=== PATIENT | male | born 1970 | race Caucasian/White ===

== ENCOUNTER 2024-06-28 12:38 | Emergency (ER) | payer BC, SELFPAY ==
[2024-06-28 12:39] VITALS: BP 129/73; PULSE 89; RESP 18; TEMP 36.6; O2SAT 97
[2024-06-28] MEDS: TETANUS,DIPHTHERIA,AC PERTUSSIS ADULT 0.5 ML (ADACEL) IM (13:09)
--- NOTE | 2024-06-28 13:26 | ED_ITS ---
HPI - General Adult General Chief complaint: Wound/Laceration Stated complaint: rt. foot injury Time Seen by Provider: 06/28/24 12:55 History of Present Illness HPI narrative: Patient reports that just prior to arrival in the emergency room he stepped on a garden rake that was laying on the ground with the tines pointed up. He was wearing a soft sole shoe and the jessica went through the shoe and into his foot. he did not sustain any other injuries in the event. He is able to bear weight. He reports the bleeding stopped on its own. Related Data Allergies Allergy/AdvReac Type Severity Reaction Status Date / Time Penicillins Allergy Unknown Unknown Verified 06/28/24 13:04 Exam Narrative: There is a single puncture wound over the ball of the foot in distribution of the 5th digit. This proximally 5 mm in diameter. Is hemostatic. There is no surrounding erythema or induration. There is no purulent drainage. Distal sen kike, motor, circulation are intact. no other injuries noted on examination.No other pain on palpation. Course Vital Signs Vital signs: Vital Signs Temperature 36.6 C 06/28/24 12:39 Pulse Rate 89 06/28/24 12:39 Respiratory Rate 18 06/28/24 12:39 Blood Pressure 129/73 06/28/24 12:39 Pulse Oximetry 97 06/28/24 12:39 Oxygen Delivery Room Air 06/28/24 12:39 Temperature 36.6 C 06/28/24 12:39 Pulse Rate 89 06/28/24 12:39 Respiratory Rate 18 06/28/24 12:39 Blood Pressure 129/73 06/28/24 12:39 Pulse Oximetry 97 06/28/24 12:39 Oxygen Delivery Room Air 06/28/24 12:39 Medical Decision Making [facility] Narrative Medical decision making narrative: Patient was placed in Room #:? Seven Independent Historian: the patient External Source Review: none Differential diagnosis includes but not limited to:? traumatic puncture wound Medications were Reviewed: home medications Independently Interpreted by me: none Medications, treatment, ED course: single puncture wound was copiously irrigated. Patient reported a penicillin allergy but states adamantly that he has had amoxicillin recently without any issues Social situation impacting patients care: patient lives independently in the community Shared decision making:? he agrees to home with self-care and follow-up with his primary care physician Accepting physician: none DISCHARGE DIAGNOSIS: puncture wound DISPOSITION: home with self-care CONDITION AT DISCHARGE:? stable Vital Signs Vital Signs: Vital Signs Temperature 36.6 C 06/28/24 12:39 Pulse Rate 89 06/28/24 12:39 Respiratory Rate 18 06/28/24 12:39 Blood Pressure 129/73 06/28/24 12:39 Pulse Oximetry 97 06/28/24 12:39 Oxygen Delivery Room Air 06/28/24 12:39 Temperature 36.6 C 06/28/24 12:39 Pulse Rate 89 06/28/24 12:39 Respiratory Rate 18 06/28/24 12:39 Blood Pressure 129/73 06/28/24 12:39 Pulse Oximetry 97 06/28/24 12:39 Oxygen Delivery Room Air 06/28/24 12:39 Discharge Plan Discharge Clinical Impression: Puncture wound Patient Disposition: Home, Self-Care Condition: Stable Instructions: Antibiotic Form Additional Instructions: he will puncture wound of your foot. He received a tetanus shot today in the ER. The wound was cleaned thoroughly. Redo not so these wounds closed because we do not own a trap bacteria or infectious material in the wound. Here being given an antibiotic not because you have an infection now but because you are at risk of developing infection. Return to the emergency department or call 911 if? you develop high fever, shaking chills, or are unable to tolerate food or? fluids, have decreased urination, or are too sick to get out of bed. Return to the emergency department if he developed redness and swelling traveling up your foot or your foot starts draining any pus. follow-up with your primary care doctor especially if you have symptoms of ongoing pain. he reported that you have a penicillin allergy dating to the infancy But that you also have recently had amoxicillin. The antibiotic I am giving you today includes amoxicillin. If you have any adverse reaction to this please stop taking it and return to the ER immediately. I recommend you follow-up with your primary care doctor to see if he can officially be cleared of having a penicillin allergy as this could be beneficial in the future. Patient Language: Turkish Prescriptions: New amoxicillin-pot clavulanate 875-125 mg tablet 1 tablet PO Q12H 7 Days Qty: 14 0RF Rx Instructions: Pt reports a penicillin allergy but states he has had recent amoxicillin without any reaction. Follow-up/Referrals: Vianey,Med Owens MD [Primary Care Provider] - Time of Disposition: 13:40
== END 2024-06-28 13:45 | disposition home or self-care (01) ==
LOC: CHSED 13:37
PROVIDERS: Emergency Provider Family Medicine; PCP Family Medicine
DX: S91.331A Puncture wound without foreign body, right foot, initial encounter (principal); Z23 Encounter for immunization; W26.8XXA Contact with other sharp object(s), not elsewhere classified, initial encounter
CPT/HCPCS: 90471; 90715; 99283

== ENCOUNTER 2024-07-23 15:14 | Emergency (ER) | payer BC, SELFPAY ==
[2024-07-23 15:14] VITALS: BP 141/111; PULSE 80; RESP 18; TEMP 35.2; O2SAT 99
--- NOTE | 2024-07-23 15:46 | ED_ITS ---
HPI - Nausea/Vomiting/Diarrhea General Chief complaint: Nausea/Vomiting/Diarrhea Stated complaint: nausea Time Seen by Provider: 07/23/24 15:46 Source: patient Mode of arrival: ambulatory Limitations: no limitations History of Present Illness HPI Narrative: 53-year-old male on Adderall developed right lower dental pain last night for which he took acetaminophen and his arms Vicodin. Subsequently he developed -- multiple episodes of vomiting. Currently his vomitus is bilious. No abdominal pain. No diarrhea. No fever or chills. No chest pain or shortness of breath. MD elicited complaint: nausea and vomiting Onset (ago): day(s) ( One day) Description of vomiting: bilious Associated nausea: Yes Associated abdominal pain: No Exacerbating factors: none Relieving factors: none Associated symptoms: syncope Related Data Allergies Allergy/AdvReac Type Severity Reaction Status Date / Time Penicillins Allergy Unknown Unknown Verified 07/23/24 15:31 Review of Systems 2 Review of Systems: All systems reviewed & are unremarkable except as noted in HPI and below Exam 2 Narrative: blood pressure 141/111 with a heart rate of 80. Patient is afebrile. Oxygen saturation of 99% on room air. Patient looks anxious and diaphoretic. Const: General: no acute distress Nutritional Appearance: well nourished Orientation/consciousness: patient oriented x3 Limitations: no limitations HENMT: Head: normal to inspection Ears: external ears normal F kevon/Nose/Sinus: Normal external nose present Face and sinus: normal facial exam Mouth: Yes Normal oral and palatal mucosa present Teeth and gingiva: abnormal tooth and associated gingiva ( right lower jaw has dental caries.) T hroat: posterior oropharynx normal Eyes: Conjunctivae: conjunctivae normal Cornea: corneas normal Pupils: E qual, round and reactive pupils present EOM: EOMs intact bilaterally D irect Ophthalmoscopy: no photophobia Neck: Neck: normal visual inspection, no lymphadenopathy and no meningeal signs Chest: Chest palpation & inspection: normal inspection of the chest Resp: Effort & Inspection: normal respiratory effort Auscultation: clear to auscultation bilaterally Cardio: Rate: regular rate Rhythm: regular rhythm GI: GI Palp: Yes Soft to palpation Auscultation: normal bowel sounds O ther: No tenderness/ rigidity /rebound : General: Yes no CVA tenderness Back/Spine/Pelvis: Back: no CVA tenderness Skin: General skin exam: normal color Rashes: no rashes Wounds: no wounds Neuro: General: patient oriented x3, moves all extremities, no meningeal signs, no focal motor deficits and CN's II-XI intact bilaterally Cranial nerves: Yes Nystagmus not present Speech: normal speech Gait exam (Neuro): Normal gait present Extrem: General: normal to inspection and no clubbing, cyanosis or edema Psych: Mental Status: mental status grossly normal Affect: normal affect Attitude: cooperative Course Course Emergency Course: nausea and vomiting possibly secondary to gastritis dehydration transaminitis questionable Tylenol overdose Patient left AMA. The patient was explained the risks and consequences involved in leaving the facility this [place]. and the benefits of continued treatment and hospitalization. I have not identified any psychosis, drugs, mental illness medical illness that alters decision-making capacity. Vital Signs Vital signs: Vital Signs Temperature 35.2 C L 07/23/24 15:14 Pulse Rate 80 07/23/24 15:14 Respiratory Rate 18 07/23/24 15:14 Blood Pressure 141/111 H 07/23/24 15:14 Pulse Oximetry 99 07/23/24 15:14 Oxygen Delivery Room Air 07/23/24 15:14 Temperature 36.6 C 07/23/24 16:19 Pulse Rate 80 07/23/24 15:14 Respiratory Rate 18 07/23/24 15:14 Blood Pressure 141/111 H 07/23/24 15:14 Pulse Oximetry 99 07/23/24 15:14 Oxygen Delivery Room Air 07/23/24 15:20 MDM - Nausea/Vomiting/Diarrhea MDM Narrative Medical decision making narrative: gastritis accidental Tylenol overdosage dental caries transaminitis Differential Diagnosis Differential diagnosis: Likely gastroenteritis Medical Records Attestation: I reviewed the patient's medical records. Lab Data Attestation: I reviewed the patient's lab results. 07/23/24 16:03 07/23/24 16:03 Labs: Lab Results 07/23/24 07/23/24 07/23/24 Range/Units 15:52 15:59 16:03 WBC 9.4 (4.8-10.8) K/mm3 RBC 5.54 (4.70-6.10) M/mm3 Hgb 15.1 (14.0-18.0) g/dL Hct 46.5 (40.0-54.0) % MCV 83.9 (78.0-102.0) fL MCH 27.3 (27.0-31.0) pg MCHC 32.5 (32-36) g/dL RDW 14.3 (11.6-14.4) % Plt Count 317 (150-420) K/mm3 MPV 9.7 (8.7-11.0) fl Immature Gran % (Auto) 0.3 H (0.0-0.0) % Neut % (Auto) 81.6 H (50.0-70.0) % Lymph % (Auto) 12.0 L (18.0-42.0) % [place] % (Auto) 5.3 (2.0-11.0) % Eos % (Auto) 0.3 L (1.0-6.0) % Baso % (Auto) 0.5 (0.0-1.0) % Lymph # (Auto) 1.12 (1.10-4.50) K/mm3 [place] # (Auto) 0.50 (0.10-0.90) K/mm3 Eos # (Auto) 0.03 (0.02-0.50) K/mm3 Baso # (Auto) 0.05 (0.00-0.10) K/mm3 Abs Immat Gran (auto) 0.03 H (0.00-0.00) K/mm3 Absolute Neuts (auto) 7.64 H (1.70-7.20) K/mm3 Absolute Nucleated RBC 0.00 (0.00-0.00) K/mm3 Nucleated RBC % 0.0 (0-0.0) % Sodium 138 (136-145) mmol/L Potassium 5.1 (3.5-5.1) mmol/L Chloride 99 (98-108) mmol/L Carbon Dioxide 29 (21-32) mmol/L Anion Gap 10 (4-12) mmol/L BUN 20 H (7-18) mg/dL Creatinine 1.08 (0.70-1.30) mg/dL Estim Creat Clear Calc 76 ml/min Estimated GFR > 60 (59 - ) Glucose 102 H (70-99) mg/dL POC Capillary Glucose 98 (65-105) mg/dl Calculated Osmolality 288 (285-295) mOsm/kg Lactic Acid 2.1 H (0.4-2.0) mmol/L Calcium 10.5 H (8.5-10.1) mg/dL Magnesium 2.0 (1.8-2.4) mg/dL Total Bilirubin 0.6 (0.00-1.00) mg/dL AST 150 H (15-37) U/L ALT 278 H (16-63) U/L Alkaline Phosphatase 124 H (46-116) U/L Troponin I 4.3 (0.00-60.4) ng/L Total Protein 9.0 H (6.4-8.2) g/dL Albumin 4.6 (3.4-5.0) g/dL Lipase 35 (16-77) U/L Urine Color Pending Urine Appearance Pending Urine pH Pending Ur Specific [place] Pending Urine Protein Pending Urine Glucose (UA) Pending Urine Ketones Pending Ur Blood (Man) Pending Urine Nitrate Pending Urine Bilirubin Pending Urine Urobilinogen Pending Leukocyte Esterase Rfl Pending Urine Opiates Screen (Negative) Urine Methadone Screen (Negative) Acetaminophen < 2 L (10-30) ug/mL Ur Barbiturates Screen (Negative) Ur Phencyclidine Scrn (Negative) Ur Amphetamine Screen (Negative) U Benzodiazepines Scrn (Negative) Urine Cocaine Screen (Negative) U Cannabinoids Screen (Negative) 07/23/24 Range/Units 16:50 WBC (4.8-10.8) K/mm3 RBC (4.70-6.10) M/mm3 Hgb (14.0-18.0) g/dL Hct (40.0-54.0) % MCV (78.0-102.0) fL MCH (27.0-31.0) pg MCHC (32-36) g/dL RDW (11.6-14.4) % Plt Count (150-420) K/mm3 MPV (8.7-11.0) fl Immature Gran % (Auto) (0.0-0.0) % Neut % (Auto) (50.0-70.0) % Lymph % (Auto) (18.0-42.0) % [place] % (Auto) (2.0-11.0) % Eos % (Auto) (1.0-6.0) % Baso % (Auto) (0.0-1.0) % Lymph # (Auto) (1.10-4.50) K/mm3 [place] # (Auto) (0.10-0.90) K/mm3 Eos # (Auto) (0.02-0.50) K/mm3 Baso # (Auto) (0.00-0.10) K/mm3 Abs Immat Gran (auto) (0.00-0.00) K/mm3 Absolute Neuts (auto) (1.70-7.20) K/mm3 Absolute Nucleated RBC (0.00-0.00) K/mm3 Nucleated RBC % (0-0.0) % Sodium (136-145) mmol/L Potassium (3.5-5.1) mmol/L Chloride (98-108) mmol/L Carbon Dioxide (21-32) mmol/L Anion Gap (4-12) mmol/L BUN (7-18) mg/dL Creatinine (0.70-1.30) mg/dL Estim Creat Clear Calc ml/min Estimated GFR (59 - ) Glucose (70-99) mg/dL POC Capillary Glucose (65-105) mg/dl Calculated Osmolality (285-295) mOsm/kg Lactic Acid (0.4-2.0) mmol/L Calcium (8.5-10.1) mg/dL Magnesium (1.8-2.4) mg/dL Total Bilirubin (0.00-1.00) mg/dL AST (15-37) U/L ALT (16-63) U/L Alkaline Phosphatase (46-116) U/L Troponin I (0.00-60.4) ng/L Total Protein (6.4-8.2) g/dL Albumin (3.4-5.0) g/dL Lipase (16-77) U/L Urine Color Urine Appearance Urine pH Ur Specific [place] Urine Protein Urine Glucose (UA) Urine Ketones Ur Blood (Man) Urine Nitrate Urine Bilirubin Urine Urobilinogen Leukocyte Esterase Rfl Urine Opiates Screen Positive A (Negative) Urine Methadone Screen Negative (Negative) Acetaminophen (10-30) ug/mL Ur Barbiturates Screen Negative (Negative) Ur Phencyclidine Scrn Negative (Negative) Ur Amphetamine Screen Positive A (Negative) U Benzodiazepines Scrn Negative (Negative) Urine Cocaine Screen Negative (Negative) U Cannabinoids Screen Positive A (Negative) ECG Data EKG #1: ECG completion date: 07/23/24 ECG completion time: 16:15 Interpretation: Normal sinus rhythm. Normal axis. Early repolarization syndrome with ST elevation in inferior and lateral leads. No ST elevation. Discharge Plan Discharge Clinical Impression: Gastritis, Unintentional Tylenol overdose, Dental caries, Transaminitis Patient Disposition: Left Against Medical Advice Condition: Unstable Additional Instructions: patient left AMA. Patient Language: Kinyarwanda Prescriptions: No Action amoxicillin-pot clavulanate 875-125 mg tablet 1 tablet PO Q12H 7 Days Qty: 14 0RF Rx Instructions: Pt reports a penicillin allergy but states he has had recent amoxicillin without any reaction. Follow-up/Referrals: Vianey,Med Owens MD [Primary Care Provider] - Time of Disposition: 17:10
--- NOTE | 2024-07-23 15:52 | ECG_ITS ---
Test Date: 2024-07-23 16:15:27 Measurements Intervals [place] Rate: 70 P: 70 PA: 166 QRS: 67 QRSD: 88 T: 61 QT: 371 QTc: 402 Interpretive Statements SINUS RHYTHM ST ELEVATION IN ANTEROLAT/INF LEADS- PROBABLY EARLY REPOLARIZATION BORDERLINE ECG No previous ECG available for comparison Electronically Signed On 07-23-2024 18:13:16 CDT by Guru Neal D.O.
[2024-07-23 16:01] LABS: Glucose Point of Care 98 mg/dl (65-105)
[2024-07-23 16:09] LABS: Basophils Absolute Auto 0.05 K/mm3 (0.00-0.10); Basophils Percent Auto 0.5 % (0.0-1.0); Eosinophils Absolute Auto 0.03 K/mm3 (0.02-0.50); Eosinophils Percent Auto 0.3 % (1.0-6.0); Hematocrit 46.5 % (40.0-54.0); Hemoglobin 15.1 g/dL (14.0-18.0); Immature Granulocyte Absolute 0.03 K/mm3 (0.00-0.00); Immature Granulocyte Percent A 0.3 % (0.0-0.0); Lymphocytes Absolute Auto 1.12 K/mm3 (1.10-4.50); Mean Corpuscular HGB Conc 32.5 g/dL (32-36); Mean Corpuscular Hemoglobin 27.3 pg (27.0-31.0); Mean Corpuscular Volume 83.9 fL (78.0-102.0); Mean Platelet Volume 9.7 fl (8.7-11.0); Monocytes Percent Auto 5.3 % (2.0-11.0); Neutrophils Absolute Auto 7.64 K/mm3 (1.70-7.20); Neutrophils Percent Auto 81.6 % (50.0-70.0); Platelet Count Result 317 K/mm3 (150-420); Red Blood Count 5.54 M/mm3 (4.70-6.10); Red Cell Distribution Width 14.3 % (11.6-14.4); White Blood Count 9.4 K/mm3 (4.8-10.8)
[2024-07-23] MEDS: LACTATED RINGERS 1,000 ML 999 ML IV CONT (16:09)
[2024-07-23] MEDS: PROCHLORPERAZINE EDISYLATE 10 MG/2 ML VIAL IV PUSH (16:10)
[2024-07-23 16:19] VITALS: TEMP 36.6
[2024-07-23 16:27] LABS: Alanine Aminotransferase 278 U/L (16-63); Albumin Level 4.6 g/dL (3.4-5.0); Alkaline Phosphatase 124 U/L (46-116); Anion Gap 10 mmol/L (4-12); Aspartate Amino Transferase 150 U/L (15-37); Bilirubin,Total 0.6 mg/dL (0.00-1.00); Blood Urea Nitrogen 20 mg/dL (7-18); Calcium 10.5 mg/dL (8.5-10.1); Carbon Dioxide 29 mmol/L (21-32); Chloride 99 mmol/L (98-108); Estimated CRCL calculation 76 ml/min; Estimated Glomerular Filt Rate > 60; Glucose 102 mg/dL (70-99); Lactic Acid Reflex 2.1 mmol/L (0.4-2.0); Lipase 35 U/L (16-77); Osmolality Calculated 288 mOsm/kg (285-295); Potassium 5.1 mmol/L (3.5-5.1); Sodium 138 mmol/L (136-145); Troponin I 4.3 ng/L (0.00-60.4)
--- NOTE | 2024-07-23 16:35 | PC.NURSE ---
ICE CHIPS PROVIDED TO PT, HE REPORTS NAUSEA HAS IMPROVED. IVF INFUSING ORDERED WITHOUT DIFFICULTY.
[2024-07-23 17:01] LABS: Acetaminophen < 2 ug/mL (10-30)
--- NOTE | 2024-07-23 17:05 | PC.NURSE ---
ERP ORDERS A SECOND LITER OF IVF, PT REPORTS HE IS LEAVING HE IS NOT STAYING FOR MORE FLUIDS OR FURTHER EVALUATION, HE IS NOT GOING TO WAIT FOR RESULTS. SIG OTHER REPORTS HE IS GOING TO TAKE OUT HIS OWN IV IF SOMEONE DOES NOT DO IT FOR HIM. PT STATES I JUST HAVE TO GET OUT OF HERE. IV SITE IS DC, DRESSING APPLIED. PT SIGNS AMA FORM AND REPORTS HE WILL FOLLOW UP WITH PMD TOMORROW OR RETURN TO ER IF SX WORSEN. PT IS AWARE OF RISKS TO LEAVING BEFORE TX IS COMPLETED.
[2024-07-23 17:07] LABS: Amphetamine Screen Urine Positive (Negative); Barbiturate Screen Urine Negative (Negative); Benzodiazepines Screen Urine Negative (Negative); Cannabinoid Screen Urine Positive (Negative); Cocaine Screen Urine Negative (Negative); Methadone Screen Urine Negative (Negative); Opiate Screen Urine Positive (Negative); Phencyclidine Screen Urine Negative (Negative)
[2024-07-23 17:09] LABS: Add Urine Microscopic? YES; Appearance Urine Clear (Clear); Bilirubin Urine 1+ (Negative); Blood Urine Negative (Negative); Color Urine Yellow (Yellow); Glucose Urine UA Negative (Negative); Ketones Urine 2+ (Negative); Leukocyte Esterase Ur Negative LEU/UL (Negative); Nitrate Urine Negative (Negative); Protein Urine Trace (Negative); Specific Grav Ur >= 1.030 (1.010-1.020); Urobilinogen Urine 0.2 mg/dL (0.2-1.0); pH Urine 5.5 (5.0-8.0)
[2024-07-23 17:12] LABS: Bacteria Urine 1+ /hpf; Mucus Urine Moderate /lpf; RBC Urine None seen /hpf (0-2); Squamous Epithelial Cell Urine Rare /hpf (Few); WBC Urine None seen /hpf (0-3)
[2024-07-23 18:06] LABS: Reflex Lactic Acid Yes or No Add Lactic
== END 2024-07-23 16:51 | disposition left against medical advice (07) ==
PROVIDERS: Emergency Provider Internal Medicine Critical Care Medicine; PCP Family Medicine
DX: K29.70 Gastritis, unspecified, without bleeding (principal); T39.1X1A Poisoning by 4-Aminophenol derivatives, accidental (unintentional), initial encounter; K02.9 Dental caries, unspecified; R74.01 Elevation of levels of liver transaminase levels
CPT/HCPCS: 36415; 80053; 80143; 80307; 81001; 82948; 83605; 83690; 83735; 84484; 85025; 93005; 96361; 96374; 99284; J0780; J7120